=== PATIENT | male | born 1985 | race Caucasian/White ===

== ENCOUNTER 2018-01-17 01:51 | Emergency (ER) | payer SELFPAY ==
[2018-01-17 02:27] LABS: ADD MAN DIFF? NO
[2018-01-17 02:28] LABS: BASO # 0.1 x10^3/uL (0.0-0.2); BASO % 1 % (0-3); EOS # 0.1 x10^3/uL (0.0-0.7); EOS % 1 % (0-3); HEMATOCRIT 41.9 % (39.0-53.0); HEMOGLOBIN 14.5 g/dL (13.0-17.5); LYMPH # 1.8 x10^3/uL (1.0-4.8); LYMPH % 22 % (24-48); MEAN CORPUSCULAR HEMOGLOBIN 31 pg (25-35); MEAN CORPUSCULAR HGB CONC 35 g/dL (31-37); MEAN CORPUSCULAR VOLUME 91 fL (79-100); MONO # 0.5 x10^3/uL (0.0-1.1); MONO % 6 % (0-9); NEUT # 5.8 x10^3uL (1.8-7.7); NEUT % 71 % (31-73); PLATELET COUNT 268 x10^3/uL (140-400); RED BLOOD COUNT 4.62 x10^6/uL (4.30-5.70); RED CELL DISTRIBUTION WIDTH 12.5 % (11.5-14.5); WHITE BLOOD COUNT 8.2 x10^3/uL (4.0-11.0)
[2018-01-17 02:38] LABS: ANION GAP 12 (6-14); BLOOD UREA NITROGEN 20 mg/dL (8-26); CALCIUM 9.5 mg/dL (8.5-10.1); CARBON DIOXIDE 26 mmol/L (21-32); CHLORIDE 105 mmol/L (98-107); GFR 86.6; GLUCOSE 108 mg/dL (70-99); POTASSIUM 3.4 mmol/L (3.5-5.1); SODIUM 143 mmol/L (136-145)
[2018-01-17 02:41] LABS: ACETAMIN < 2 mcg/ml (10-30); ETHANOL < 10 mg/dL (0-10); SALIC < 2.8 mg/dL (2.8-20.0)
[2018-01-17 02:44] LABS: ALBUMIN 4.4 g/dL (3.4-5.0); ALK PHOS 74 U/L (46-116); ALT (SGPT) 46 U/L (16-63); AST (SGOT) 22 U/L (15-37); DIRECT BILIRUBIN 0.1 mg/dL (0.0-0.2); TOTAL BILIRUBIN 0.4 mg/dL (0.2-1.0); TOTAL PROTEIN 7.8 g/dL (6.4-8.2)
[2018-01-17 02:51] LABS: FREE T4 1.07 ng/dL (0.76-1.46)
[2018-01-17 02:51] LABS: THYROID STIM HORMONE (TSH) 1.123 uIU/mL (0.358-3.74)
[2018-01-17 03:31] LABS: BILIRUBIN,URINE NEGATIVE (NEG); CLARITY,URINE CLEAR; COLOR,URINE YELLOW; GLUCOSE,URINE NEGATIVE (NEG); NITRITE,URINE NEGATIVE (NEG); PROTEIN,URINE NEGATIVE (NEG-TRACE); UROBILINOGEN,URINE 0.2 mg/dL (0.2 mg/dL)
[2018-01-17 03:37] LABS: AMORPHOUS SEDIMENT,UR PRESENT /HPF; BACTERIA,URINE 0 /HPF (0-FEW); BARBITURATES NEG (NEG); BENZODIAZEPINES NEG (NEG); CANNABINOIDS NEG (NEG); COCAINE NEG (NEG); METHADONE NEG (NEG); OPIATES NEG (NEG); PHENCYCLIDINE NEG (NEG); RBC,URINE 0 /HPF (0-2); SPERM,URINE PRESENT /HPF; WBC,URINE RARE /HPF (0-4)
[2018-01-17 03:39] LABS: AMPHETAMINE/METHAMPHETAMINE NEG (NEG); ETHANOL, URINE NEG (NEG)
== END 2018-01-17 06:39 | disposition home or self-care (01) ==
LOC: ER 01:51
DX: F32.9 Major depressive disorder, single episode, unspecified (principal); F41.9 Anxiety disorder, unspecified
CPT/HCPCS: 36415; 70450; 73130; 80048; 80076; 80307; 80329; 81001; 83735; 84439; 84443; 85025; 93005; 99285-25; G0480; G6039

== ENCOUNTER 2020-08-07 17:29 | Emergency (ER) | payer OTHER ==
[~2020-08-07] VITALS: Ht 182.9 cm; Wt 113.6 kg
[~2020-08-07 17:29] MED LIST: BUSP10TA PO; CITA40TA5 PO
[2020-08-07 18:53] LABS: INFLUENZA A PATIENT NEGATIVE (NEGATIVE); INFLUENZA B PATIENT NEGATIVE (NEGATIVE)
--- NOTE | 2020-08-07 19:57 | PHYS DOC ---
Past Medical History Past Medical History: Anxiety, Depression, Hypertension (SHARON MCDONNELL APRN) Past Surgical History: No Surgical History (SHARON MCDONNELL APRN) Smoking Status: Never Smoker Alcohol Use: None Drug Use: None (SHARON MCDONNELL APRN) General Adult EDM: Chief Complaint: FLU SYMPTOM HPI: HPI: Patient is a 34 year old female with history of depression, anxiety, hypertension, who presents to the ED today complaining of a slight cough, fatigue, slight shortness of breath, nausea, vomiting, diarrhea, symptoms began 3 days ago. Patient states he works for [email or web address] missed work for 2 days. He states his employer requested him to come to the ED to be tested for Covid as well as influenza. (SHARON MCDONNELL APRN) Review of Systems: Review of Systems: Constitutional: Reports fatigue. Denies fever or chills. [] Eyes: Denies change in visual acuity. [] HENT: Denies nasal congestion or sore throat. [] Respiratory: Reports shortness of breath, cough. Cardiovascular: Denies chest pain or edema. [] GI: Reports nausea and vomiting. Reports diarrhea. Denies abdominal pain, bloody stools : Denies dysuria. [] Musculoskeletal: Denies back pain or joint pain. [] Integument: Denies rash. [] Neurologic: Denies headache, focal weakness or sensory changes. [] Psychiatric: Denies depression or anxiety. [] (SHARON MCDONNELL APRN) Heart Score: Risk Factors: Risk Factors: DM, Current or recent (<one month) smoker, HTN, HLP, family history of CAD, obesity. Risk Scores: Score 0 - 3: 2.5% MACE over next 6 weeks - Discharge Home Score 4 - 6: 20.3% MACE over next 6 weeks - Admit for Clinical Observation Score 7 - 10: 72.7% MACE over next 6 weeks - Early Invasive Strategies (SHARON MCDONNELL APRN) Allergies: Allergies: Allergies Coded Allergies Type Severity Reaction Last Updated Verified No Known Drug Allergies 02/22/15 No (SHARON MCDONNELL APRN) Physical Exam: PE: Constitutional: Well developed, well nourished, no acute distress, non-toxic appearance. [] HENT: Normocephalic, atraumatic, bilateral external ears normal, oropharynx moist, no oral exudates, nose normal. [] Eyes: PERRLA, EOMI, conjunctiva normal, no discharge. [] Neck: Normal range of motion, no tenderness, supple, no stridor. [] Cardiovascular:Heart rate regular rhythm, no murmur [] Lungs & Thorax: Bilateral breath sounds clear to auscultation [] Abdomen: Bowel sounds normal, soft, no tenderness, no masses, no pulsatile masses. [] Skin: Warm, dry, no erythema, no rash. [] Back: No tenderness, no CVA tenderness. [] Extremities: No tenderness, no cyanosis, no clubbing, ROM intact, no edema. [] Neurologic: Alert and oriented X 3, normal motor function, normal sensory function, no focal deficits noted. [] Psychologic: Affect normal, judgement normal, mood normal. [] (SHARON MCDONNELL APRN) Current Patient Data: Labs: Laboratory Tests Test 08/07/20 18:28 Influenza Type A Antigen Negative (NEGATIVE) Influenza Type B Antigen Negative (NEGATIVE) Vital Signs: Vital Signs Date Time Temp Pulse Resp B/P (MAP) Pulse Ox O2 Delivery O2 Flow Rate FiO2 08/07/20 18:07 98.4 81 18 170/106 (127) 98 Room Air 98.4 (SHARON MCDONNELL APRN) EKG: EKG: [] (SHARON MCDONNELL APRN) Radiology/Procedures: Radiology/Procedures: [] (SHARON MCDONNELL APRN) Course & Med Decision Making: Course & Med Decision Making Pertinent Labs and Imaging studies reviewed. (See chart for details) This is a 34-year-old male patient presented to the ED today complaining of shortness of breath, fatigue, nausea vomiting and diarrhea for 3 days. Was sent to the ED for Covid test as well as influenza test by the employer. COVID-19 was obtained. Results will be called to him. Negative influenza AB, chest x-ray negative. Instructed to quarantine himself until he hears from us. Provided other supportive care measures. (SHARON MCDONNELL APRN) Dragon Disclaimer: Dragon Disclaimer: This electronic medical record was generated, in whole or in part, using a voice recognition dictation system. (SHARON MCDONNELL APRN) Departure Departure Impression: Primary Impression: Person under investigation for COVID-19 Additional Impressions: Cough Vomiting and diarrhea Shortness of breath Disposition: 01 DC HOME SELF CARE/HOMELESS Condition: STABLE Referrals: SEVERO JARAMILLO JR, MD (PCP) Follow-up in 1 to 2 weeks Patient Instructions: Cough, Adult, [id number]-[id number], Nausea and Vomiting, Mmdo-[id number] Additional Instructions: Your symptoms are suspicious of a viral illness. You were tested for influenza, your test is negative. Your chest x-ray is negative for any acute findings. We tested you for COVID-19, we will call you next week with results. Quarantine yourself until you hear from us. Rest, push fluids, take Tylenol/ Motrin for pain or fever. Attending Signature Attending Signature I have reviewed the PA/HIGHWAY RESEARCH ENGINEER's note and plan of care. I was available for consultation as needed during the patient's visit in the emergency department. I agree with the clinical impression, plan, and disposition. (ADY RIVERS DO) SHARON MCDONNELL APRN Aug 07, 2020 19:57 ADY RIVERS DO Aug 08, 2020 03:04
--- NOTE | 2020-08-07 20:43 | RAD ---
Exam: Chest one view INDICATION: Cough TECHNIQUE: Frontal view of the chest Comparisons: None FINDINGS: The cardiomediastinal silhouette and pulmonary vessels are within normal limits. The lung and pleural spaces are clear. IMPRESSION: No acute cardiopulmonary process. Electronically signed by: Crhis Lane MD (08/07/2020 8:40 PM) EMELY
[2020-08-07 20:45] VITALS: BP 131/78
--- NOTE | 2020-08-09 09:34 | NUR ---
IP: Attempted to call pt COVID results. No answer.
== END 2020-08-07 20:56 | disposition home or self-care (01) ==
LOC: ER 17:29
DX: U07.1 COVID-19 (principal); R05 Cough; R06.02 Shortness of breath; R11.2 Nausea with vomiting, unspecified; R19.7 Diarrhea, unspecified; R53.83 Other fatigue; I10 Essential (primary) hypertension; F41.9 Anxiety disorder, unspecified; F32.9 Major depressive disorder, single episode, unspecified
CPT/HCPCS: 71045; 87804; 99284; C9803; U0003

== ENCOUNTER 2021-01-15 20:42 | Emergency (ER) | payer OTHER ==
[~2021-01-15] VITALS: Ht 182.9 cm; Wt 113.0 kg
[2021-01-15 22:21] VITALS: BP 150/93
--- NOTE | 2021-01-15 22:50 | ED.ADGEN ---
Past Medical History Past Medical History: Anxiety, Depression, Hypertension Additional Past Medical Histor: COVID Past Surgical History: No Surgical History Smoking Status: Never Smoker Alcohol Use: None Drug Use: None General Adult EDM: Chief Complaint: Congestion HPI: HPI: Patient is a 35 year old male who presents emergency department with complaints of nasal congestion, sore throat, frequent throat clearing, and productive cough for the last 3 or 4 days. Patient states he recently returned from [place]. He reports that he had Covid last year and that he has been immunized against Covid. Patient denies any loss of taste/smell. He denies any shortness of br eath, wheezing, chest pain, palpitations, headache, nausea, vomiting, diarrhea, abdominal pain, body aches, rash, or wheezing. Patient denies any history of asthma or chronic bronchitis. He currently denies any pain. Patient does report a history of seasonal allergies but states he is not taking any medications for them. Review of Systems: Review of Systems: Complete ROS is negative unless otherwise noted in HPI. Allergies: Allergies: Allergies Coded Allergies Type Severity Reaction Last Updated Verified No Known Drug Allergies 02/22/15 No Physical Exam: PE: See Above Constitutional: Well developed, well nourished, no acute distress, obese HENT: Normocephalic, atraumatic, bilateral external ears normal, posterior pharynx normal, oropharynx moist, nose congested with erythema and edema of the nasal turbinates bilaterally Eyes: PERRLA, conjunctiva injected bilaterally, no discharge. [] Neck: Normal range of motion, no stridor. [] Cardiovascular:Heart rate regular rhythm, no murmur [] Lungs & Thorax: Bilateral breath sounds clear to auscultation, Respirations even and unlabored, no retractions, no respiratory distress Skin: Warm, dry, no erythema, no rash. [] Back: No tenderness Extremities: No cyanosis, ROM intact Neurologic: Alert and oriented X 3, no focal deficits noted. [] Psychologic: Affect normal, judgement normal, mood normal. Current Patient Data: Vital Signs: Vital Signs Date Time Temp Pulse Resp B/P (MAP) Pulse Ox O2 Delivery O2 Flow Rate FiO2 01/15/21 22:21 99.0 96 12 150/93 (112) 97 Room Air 99.0 EKG: EKG: [] Heart Score: C/O Chest Pain: No Risk Scores: Score 0 - 3: 2.5% MACE over next 6 weeks - Discharge Home Score 4 - 6: 20.3% MACE over next 6 weeks - Admit for Clinical Observation Score 7 - 10: 72.7% MACE over next 6 weeks - Early Invasive Strategies Radiology/Procedures: Radiology/Procedures: [] Course & Med Decision Making: Course & Med Decision Making Pertinent Labs and Imaging studies reviewed. (See chart for details) 35-year-old male presents emergency department with productive cough, nasal congestion, sore throat and frequent throat clearing. Patient requests testing for COVID-19 as he is recently traveled. I have a low suspicion for Covid however will test as patient request. Patient is most likely suffering from seasonal allergies and upper respiratory infection. I encouraged the patient to take a daily antihistamine such as Zyrtec, [place], Claritin. Use an hxbm-qjf-xbxuton nasal spray such as Flonase, increase fluids, and take pbfj-ooj-ynrxrpe Mucinex as needed to help relieve chest congestion and cough. Encouraged him to follow the quarantine instructions until his results are known. Follow-up with his primary care doctor if symptoms persist, return to the ER if symptoms worsen or fever develops. Patient verbalized an understanding of home care, medications, follow-up, and return to ED instructions and was in agreement with the plan of care. COVID-19 CRITERIA: The patient was evaluated during the global COVID-19 pandemic, and that diagnosis was suspected/considered upon their initial presen tation. Their evaluation, treatment and testing was consistent with current guidelines for patients who present with complaints or symptoms that may be related to COVID-19. Antonio Disclaimer: Antonio Disclaimer: This electronic medical record was generated, in whole or in part, using a voice recognition dictation system. Departure Departure Impression: Primary Impression: URI with cough and congestion Additional Impressions: Person under investigation for COVID-19 Allergic rhinitis Disposition: HOME / SELF CARE / HOMELESS Condition: STABLE Referrals: UNKNOWN PCP NAME (PCP) Patient Instructions: Allergic Rhinitis, Upper Respiratory Infection, Adult, Khgc-sd-Cuxm Additional Instructions: I recommend that you take a daily antihistamine such as Zyrtec, [place], Claritin. Use an srtv-qil-kcbdgrh nasal spray such as Flonase, increase fluids, and take ixig-kum-vleuplv Mucinex as needed to help relieve chest congestion and cough. You may take Tylenol or ibuprofen as needed for pain/fever. Increase clear fluids. Avoid triggers such as smoke, fragrance, dust, and pollen. Follow quarantine instructions provided until your results are known or symptoms have completely resolved. Follow-up with your primary care doctor if symptoms persist, return to the ER if symptoms worsen. You have been tested for or diagnosed with COVID-19. It is an infection caused by a new type of coronavirus. COVID-19 will cause cold-like or mild flu symptoms in most. It can cause more severe symptoms like problems breathing in some. There is no treatment for COVID-19. The body will clear the infection over time. Self-care will help to ease discomfort. Steps to Take: Self-Care Rest as needed. Healthy habits may help you feel better. Steps include: Choose healthy foods including fruits and vegetables. Drink water throughout the day. Get plenty of sleep each night. If you smoke, try to quit. It may ease breathing. Avoid alcohol. Keep Others Healthy The virus can spread to others. Droplets are released every time you sneeze or cough. The droplets can get into the mouth, nose, or eyes of people near you and lead to infection. To lower the chances of spreading COVID-19 to others: Stay at home until your doctor has said it is safe to leave. If you tested positive this will mean staying isolated until both of the following are true: At least 7 days have passed since the start of illness. You are free of fever for at least 72 hours without the use of medicine. During this time: - Avoid public areas, events, or transportation. Do not return to work or school until your doctor has said it is safe to do so. - Call ahead if you need to go to a medical center. Let them know you may have COVID-19. It will help them guide you where to go. They may also ask you to wear a facemask w hen you come to the office. - If you call for emergency medical services, let them know you may have COVID- 19. While at home: - Try to avoid close contact with others. Stay about 6 feet away. - If possible, spend most of your time in a separate room from others. - Use a face mask if you will be in close contact with others such as sharing a room or vehicle. - Have someone wipe down common surfaces in the home. Use household vegetable buncher every day on areas like doorknobs, counters, or sinks. - Cough or sneeze into a tissue. Throw the tissue away right after use. If a tissue is not available, cough or sneeze into your elbow. - Wash your hands often. Wash them after sneezing or coughing. Use soap and water and wash for at least 20 seconds. Alcohol based hand delta system freight car cleaner can be used if soap and water is not available. - Do not prepare food for others. Avoid sharing personal items like forks, spoons, or toothbrushes. - Avoid close contact with pets while you are sick. There is no evidence of the virus passing to pets. This is a safety step until more is known about this virus. Isolation can be frustrating. Social interaction can help. Keep in touch with friends and family through phone and tech options. You can still interact with others in your home, just keep a safe distance of about 6 feet. Follow-up: Your doctors office will check in with you to see if there are any changes in your health. You may be asked to keep track of symptoms to share with them. They will also let you know when you are clear to be in public again. Problems to Look Out For: Contact your doctor if your recovery is not going as you expect. Get emergency care if you have problems such as: - Trouble breathing - Nonstop chest pain or pressure - Changes in awareness, confusion, or problems waking - Lips or face have bluish color - Worsening of symptoms If you think you have an emergency, call for emergency medical services right away. 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
--- NOTE | 2021-01-17 09:13 | NUR ---
IP: Informed pt of negative covid test. Pt verbalized understanding.
== END 2021-01-15 22:58 | disposition home or self-care (01) ==
LOC: ER 20:42
DX: J06.9 Acute upper respiratory infection, unspecified (principal); Z20.822 Contact with and (suspected) exposure to COVID-19; J30.9 Allergic rhinitis, unspecified; I10 Essential (primary) hypertension
CPT/HCPCS: 99283; U0003; U0005